=== PATIENT | female | born 1975 | race Two or more races ===

== ENCOUNTER → 2025-07-17 | Outpatient (CLI) | payer MEDICAID, SELFPAY ==
--- NOTE | 2025-07-17 14:00 | XR_ITS ---
Examination: Screening digital mammography, bilateral Computer aided detection 3-D breast Tomosynthesis, bilateral Date and time of exam: July 17, 2025, 1430 hours, compared to mammograms dating to June 25, 2019 Indication: Screening Technique: Nonmagnified MLO, CC views of the breasts to been obtained, reconstructed from 3-D Tomosynthesis images. R2 computer aided detection program utilized for evaluation of suspicious masses and/or abnormal calcifications. 3-D Tomosynthesis images obtained. Findings: The breasts are heterogeneously dense, which may obscure small masses 4 mm nodule upper outer left breast anterior depth Impression: BI-RADS Category 0: Incomplete: Need additional imaging evaluation Recommend follow-up spot tomographic views of 4 mm nodule upper outer left breast as well as left breast sonography to complete the workup.
--- NOTE | 2025-07-17 14:30 | XR_ITS ---
Examination: Breast ultrasound, unilateral, left complete Date and time of exam: July 17, 2025 1458 hours INDICATIONS: Mammogram 07/25/2023 2:00 nodule 8 mm circumscribed Technique: Real-time julio scale ultrasonographic imaging performed left breast including all 4 quadrants as well as nipple retroareolar and axillary region. Findings: 2:00 cyst 4 x 6 mm 3:00 cyst 6 x 6 mm 10:00 hyperechoic nodule 10 x 9 mm IMPRESSION: BI-RADS Category 3: Probably benign findings Recommend 1 additional 6 month left breast sonogram follow-up to document stability of 10:00 nodule described above
== END | disposition home or self-care (01) ==
LOC: CDIM 14:18
PROVIDERS: Referring Provider Nurse Practitioner Family; Visit Provider Nurse Practitioner Family
DX: Z12.31 Encounter for screening mammogram for malignant neoplasm of breast (principal); R92.8 Other abnormal and inconclusive findings on diagnostic imaging of breast; N63.21 Unspecified lump in the left breast, upper outer quadrant
CPT/HCPCS: 76641; 77063; 77067

== ENCOUNTER → 2025-09-23 | Outpatient (CLI) | payer MEDICAID, SELFPAY ==
--- NOTE | 2025-09-23 11:00 | XR_ITS ---
Examination: Breast ultrasound, unilateral, left Date and time of exam: September, 11:30 a.m. INDICATIONS: 10:00 nodule 10 x 9 mm on ultrasound 07/27/2025 Technique: Real-time julio scale ultrasonographic imaging performed left breast including all 4 quadrants as well as nipple retroareolar and axillary region. Findings: Multiple benign cysts 6:00 nodule 6 x 4 mm 10:00 nodule 9 x 9 mm IMPRESSION: BI-RADS Category 3: Probably benign findings. 1 additional 6-month left breast sonogram follow-up is needed to document stability of nodules described above
--- NOTE | 2025-09-23 11:30 | XR_ITS ---
Examination: Diagnostic digital mammography, unilateral, left Computer aided detection 3-D breast Tomosynthesis, unilateral Date and time of exam: September 23, 2025, 1143 hours INDICATIONS: Mammogram 07/17/2025 4 mm nodule upper outer left breast anterior depth Technique: Nonmagnified MLO, CC views of the left breast have been obtained, reconstructed from 3-D Tomosynthesis images. R2 computer aided detection program utilized for evaluation of suspicious masses and/or abnormal calcifications. 3-D Tomosynthesis images obtained. Findings: The breast is heterogeneously dense, which may obscure small masses Nodular asymmetry persists on the spot compression MLO view above the left nipple probably benign Impression: BI-RADS category 3: Probably benign findings 1 additional 6-month continued left mammogram follow-up is needed
== END | disposition home or self-care (01) ==
LOC: CDIM 11:09
PROVIDERS: PCP Nurse Practitioner Family; Referring Provider Nurse Practitioner Family; Visit Provider Nurse Practitioner Family
DX: R92.332 Mammographic heterogeneous density, left breast (principal); N63.25 Unspecified lump in the left breast, overlapping quadrants; N63.22 Unspecified lump in the left breast, upper inner quadrant
CPT/HCPCS: 76641; 77061; 77065; G0279